=== PATIENT | male | born 1990 | race African-American/Black ===

== ENCOUNTER 2018-04-22 10:52 | Emergency (ER) | payer SELFPAY | END 2018-04-22 11:15 | disposition home or self-care (01) | LOC: ER 10:52 | DX: S43.005D Unspecified dislocation of left shoulder joint, subsequent encounter (principal); Z88.0 Allergy status to penicillin; X58.XXXD Exposure to other specified factors, subsequent encounter | CPT/HCPCS: 99281 ==

== ENCOUNTER 2020-10-14 13:18 | Emergency (ER) | payer SELFPAY ==
[~2020-10-14] VITALS: Ht 190.5 cm; Wt 90.9 kg
[2020-10-14] MEDS ORDERED: cefTRIAXone IM 250 MG VIAL IM ONE ×2 (13:58→14:00)
[2020-10-14] MEDS ORDERED: metroNIDAZOLE 500 MG TABLET ONE (13:58)
[2020-10-14] MEDS ORDERED: DOXYCYCLINE HYCLATE 100 MG TABLET PO ONE (14:00)
[2020-10-14] MEDS ORDERED: metroNIDAZOLE 500 MG TABLET PO ONE (14:00)
[2020-10-14] MEDS ORDERED: DOXY100T PO (14:17)
--- NOTE | 2020-10-14 14:17 | PHYS DOC ---
Past Medical History Past Medical History: No Pertinent History Past Surgical History: No Surgical History Smoking Status: Never Smoker Alcohol Use: None Drug Use: None General Adult EDM: Chief Complaint: SEXUALLY TRANSMITTED DISEASE HPI: HPI: Patient is a 30 year old male patient who presents to the ED today complaining of green penile discharge with dysuria symptoms for 3 days. He is concerned about STDs and would like to be treated. Review of Systems: Review of Systems: Constitutional: Denies fever or chills. [] GI: Denies abdominal pain, nausea, vomiting, bloody stools or diarrhea. [] : Reports dysuria and green penile discharge Musculoskeletal: Denies back pain or joint pain. [] Integument: Denies rash. [] Neurologic: Denies headache, focal weakness or sensory changes. [] Psychiatric: Denies depression or anxiety. [] Heart Score: Risk Factors: Risk Factors: DM, Current or recent (<one month) smoker, HTN, HLP, family history of CAD, obesity. Risk Scores: Score 0 - 3: 2.5% MACE over next 6 weeks - Discharge Home Score 4 - 6: 20.3% MACE over next 6 weeks - Admit for Clinical Observation Score 7 - 10: 72.7% MACE over next 6 weeks - Early Invasive Strategies Current Medications: Current Medications Medications (Trade) Dose Ordered Sig/Yissel Start Time Stop Time Status Last Admin Dose Admin Ceftriaxone Sodium (Rocephin Im) 250 mg STK-MED ONCE 10/14/20 13:58 10/14/20 13:59 DC Doxycycline Hyclate (Vibra-Tab) 100 mg 1X ONCE 10/14/20 14:00 10/14/20 14:01 DC 10/14/20 14:05 100 MG Metronidazole (Flagyl) 500 mg STK-MED ONCE 10/14/20 13:58 10/14/20 13:58 DC Allergies: Allergies: Allergies Coded Allergies Type Severity Reaction Last Updated Verified Penicillins Allergy Mild 10/07/14 Yes Physical Exam: PE: Constitutional: Well developed, well nourished, no acute distress, non-toxic appearance. [] Abdomen: Bowel sounds normal, soft, no tenderness, no masses, no pulsatile masses. [] Skin: Warm, dry, no erythema, no rash. [] Back: No tenderness, no CVA tenderness. [] Extremities: No tenderness, no cyanosis, no clubbing, ROM intact, no edema. [] Neurologic: Alert and oriented X 3, normal motor function, normal sensory function, no focal deficits noted. [] Psychologic: Affect normal, judgement normal, mood normal. [] Current Patient Data: Vital Signs: Vital Signs Date Time Temp Pulse Resp B/P (MAP) Pulse Ox O2 Delivery O2 Flow Rate FiO2 10/14/20 13:40 98.2 68 16 119/62 (81) 98 Room Air 98.2 EKG: EKG: [] Radiology/Procedures: Radiology/Procedures: [] Course & Med Decision Making: Course & Med Decision Making Pertinent Labs and Imaging studies reviewed. (See chart for details) This is a 30-year-old male patient presented to the ED today with green penile discharge and dysuria, symptoms for 3 days, would like to be treated for STDs. Patient was given Rocephin and Flagyl and prescription for doxycycline first dose given in the ED. STD education provided. Rjon Disclaimer: Ignacio Disclaimer: This electronic medical record was generated, in whole or in part, using a voice recognition dictation system. Departure Departure Impression: Primary Impression: Concern about STD in male without diagnosis Disposition: 01 DC HOME SELF CARE/HOMELESS Condition: STABLE Referrals: NO PCP (PCP) Follow-up with the health department Patient Instructions: Sexually Transmitted Disease Additional Instructions: You were treated for sexually transmitted diseases. Ensure you complete the prescribed oral antibiotics. Do not have any intercourse for 1 week. Use protection after that. Let all your partners know you are treated for STDs and asked him to seek treatment Scripts Doxycycline Hyclate (DOXYCYCLINE HYCLATE) 100 Mg Tablet 1 TAB PO BID, #14 TAB Prov: CESARClarenceHARSHA APRN 10/14/20 HARSHA EDUARDO APRN Oct 14, 2020 14:17
[2020-10-14 14:29] VITALS: BP 124/66
== END 2020-10-14 14:30 | disposition home or self-care (01) ==
LOC: ER 13:18
DX: R36.9 Urethral discharge, unspecified (principal); R30.0 Dysuria; Z88.0 Allergy status to penicillin
CPT/HCPCS: 96372; 99283; J0696

== ENCOUNTER 2020-11-24 08:33 | Emergency (ER) | payer SELFPAY ==
[~2020-11-24] VITALS: Ht 190.5 cm; Wt 88.6 kg
[~2020-11-24 08:33] MED LIST: DOXY100T PO
[2020-11-24 08:50] VITALS: BP 132/75
--- NOTE | 2020-11-24 09:02 | PHYS DOC ---
Past Medical History Past Medical History: No Pertinent History Past Surgical History: No Surgical History Smoking Status: Never Smoker Alcohol Use: None Drug Use: None General Adult EDM: Chief Complaint: SEXUALLY TRANSMITTED DISEASE HPI: HPI: 30-year-old female presenting with green drainage from his penis for about a week. He has a history of gonorrhea status post treatment about a month and half ago. His partner is currently not having any symptoms. He denies any nausea vomiting abdominal pain or testicular pain. He denies dysuria polyuria or hematuria. He was tested recently for HIV which was negative. Patient denies any rashes or lesions of the penis. pt has tolerated rocephin prior. Review of systems negative for chest pain abdominal pain vomiting fevers chills. He denies any rashes. All other review of systems negative. ED course: 30-year-old male presenting with drainage from his penis. We will send testing for gonorrhea chlamydia and give him treatment and refer him to health department for comprehensive STD evaluation. Patient's partner will also need to be evaluated at health department for STDs. Heart Score: C/O Chest Pain: No Risk Factors: Risk Factors: DM, Current or recent (<one month) smoker, HTN, HLP, family history of CAD, obesity. Risk Scores: Score 0 - 3: 2.5% MACE over next 6 weeks - Discharge Home Score 4 - 6: 20.3% MACE over next 6 weeks - Admit for Clinical Observation Score 7 - 10: 72.7% MACE over next 6 weeks - Early Invasive Strategies Allergies: Allergies: Allergies Coded Allergies Type Severity Reaction Last Updated Verified Penicillins Allergy Mild 10/07/14 Yes Physical Exam: PE: Constitutional: Well developed, well nourished, no acute distress, non-toxic appearance. [] HENT: Normocephalic, atraumatic, bilateral external ears normal, oropharynx moist, no oral exudates, nose normal. [] Eyes: PERRLA, EOMI, conjunctiva normal, no discharge. [] Neck: Normal range of motion, no tenderness, supple, no stridor. [] Cardiovascular:Heart rate regular rhythm, no murmur [] Lungs & Thorax: Bilateral breath sounds clear to auscultation [] Abdomen: Bowel sounds normal, soft, no tenderness, no masses, no pulsatile masses. [] : Deferred. Skin: Warm, dry, no erythema, no rash. [] Back: No tenderness, no CVA tenderness. [] Extremities: No tenderness, no cyanosis, no clubbing, ROM intact, no edema. [] Neurologic: Alert and oriented X 3, normal motor function, normal sensory function, no focal deficits noted. [] Psychologic: Affect normal, judgement normal, mood normal. [] Current Patient Data: Vital Signs: Vital Signs Date Time Temp Pulse Resp B/P (MAP) Pulse Ox O2 Delivery O2 Flow Rate FiO2 11/24/20 08:50 98.1 72 18 132/75 (94) 97 Room Air 98.1 EKG: EKG: [] Radiology/Procedures: Radiology/Procedures: [] Course & Med Decision Making: Course & Med Decision Making Pertinent Labs and Imaging studies reviewed. (See chart for details) [] Dragon Disclaimer: Dragon Disclaimer: This electronic medical record was generated, in whole or in part, using a voice recognition dictation system. Departure Departure Impression: Primary Impression: Concern about STD in male without diagnosis Disposition: 01 DC HOME SELF CARE/HOMELESS Condition: STABLE Referrals: NO PCP (PCP) Patient Instructions: Sexually Transmitted Disease Additional Instructions: EMERGENCY DEPARTMENT GENERAL DISCHARGE INSTRUCTIONS Follow-up with your primary physician and/or the health department in 1 to 2 days. Return to the emergency department if you have any new or concerning findings. Thank you for coming to [facility] Emergency Department (ED) today and trusting us with you care. We trust that you had a positive experience in our Emergency Department. If you wish to speak to the department management, you may call the Director at [phone]. YOUR FOLLOW UP INSTRUCTIONS ARE FOLLOWS: 1. Do you have a private Doctor? If you do not have a private doctor, please ask for a resource list of physicians or clinics that may be able to assist you with follow up care. 2. If a lab test or culture has been done and does not come back immediately, your results will be reviewed and you will be notified if you need a change in treatment. ADDITIONAL INSTRUCTIONS AND INFORMATION: 1. Your care today has been supervised by a physician who is specially trained in emergency care. Many problems require more than one evaluation for a complete diagnosis and treatment. We recommend that you schedule your follow up appointment as recommended to ensure complete treatment of you illness or injury. If you are unable to obtain follow up care and continue to have a problem, or if your condition worsens, we recommend that you return to the ED. 2. We are not able to safely determine your condition over the phone nor are we able to give sound medical advice over the phone. For these safety reasons, if you call for medical advice we will ask you to come to the ED for further evaluation. 3. If you have any questions regarding these discharge instructions please call the ED at [phone]. SAFETY INFORMATION: In the interest of safety, wellness, and injury prevention; we encourage you to wear your sealbelt, if you smoke; quite smoking, and we encourage family to use a protective helmet for bicycling and other sporting events that present an increased risk for head injury. IF YOUR SYMPTOMS WORSEN OR NEW SYMPTOMS DEVELOP, OR YOU HAVE CONCERNS ABOUT YOUR CONDITION; OR IF YOUR CONDITION WORSENS WHILE YOU ARE WAITING FOR YOUR FOLLOW UP APPOINTMENT; EITHER CONTACT YOUR PRIMARY CARE DOCTOR, THE PHYSICIAN WHOSE NAME AND NUMBER YOU WERE GIVEN, OR RETURN TO THE ED IMMEDIATELY. This condition should be evaluated by your primary care physician and any necessary consulting services for continued management within a few days (1-2) after discharge. Return to the emergency department if you have any new or concerning symptoms including but not limited to fever, chills, nausea, vomiting, intractable pain, any new rashes, chest pain, shortness of breath, uncontrolled bleeding, difficulty breathing, and/or vision loss. SHARI SANTOS MD Nov 24, 2020 09:02
[2020-11-24] MEDS ORDERED: AZITHROMYCIN 250 MG TABLET. PO ONE (09:15)
[2020-11-24] MEDS ORDERED: cefTRIAXone IM 500 MG VIAL. IM ONE (09:15)
== END 2020-11-24 09:58 | disposition home or self-care (01) ==
LOC: ER 08:33
DX: N48.89 Other specified disorders of penis (principal); Z20.2 Contact with and (suspected) exposure to infections with a predominantly sexual mode of transmission; Z88.0 Allergy status to penicillin
CPT/HCPCS: 87491; 87591; 96372; 99283; J0696

== ENCOUNTER 2021-06-16 07:25 | Emergency (ER) | payer BC | END 2021-06-16 08:46 | disposition left against medical advice (07) | LOC: ER 07:25 | DX: Z20.2 Contact with and (suspected) exposure to infections with a predominantly sexual mode of transmission (principal); Z53.21 Procedure and treatment not carried out due to patient leaving prior to being seen by health care provider ==